=== PATIENT | female | born 1985 | race African-American/Black ===

== ENCOUNTER 2019-03-15 15:33 | Emergency (ER) | payer OTHER ==
[~2019-03-15] VITALS: Ht 152.4 cm; Wt 77.0 kg
[2019-03-15] MEDS ORDERED: ACETAMINOPHEN 325MG TABLET PO STA (15:58)
[2019-03-15] MEDS ORDERED: SODIUM CHLORIDE 0.9% 1,000 ML IV ONE ×2 (15:58→16:00)
[2019-03-15] MEDS ORDERED: ONDANSETRON HCL 4MG/2ML INJ IV STA (15:58)
[2019-03-15 16:25] LABS: HEMATOCRIT. 32.1 % (36.0-48.0); HEMOGLOBIN. 10.5 g/dL (12.0-16.0); MEAN CORPUSCULAR HEMOGLOBIN 26.3 pg (28.0-32.0); MEAN PLATELET VOLUME 9.3 fl (7.4-10.4); PLATELET 149 x1000/uL (130-400); RED BLOOD CELL COUNT 4.01 mill/uL (4.2-5.4); RED CELL DISTRIBUTION WIDTH 17.5 % (11.6-14.6)
[2019-03-15 16:29] LABS: CHLORIDE 103 mEq/L (98-107)
[2019-03-15 16:44] LABS: PLATELET ESTIMATE NORMAL
[2019-03-15 17:43] LABS: CLARITY URINE TURBID (CLEAR); COLOR URINE DARK YELLOW (YELLOW); KETONES URINE 2+ (NEGATIVE); LEUKOCYTE ESTERASE URINE 3+ (NEGATIVE); NITRITE URINE NEGATIVE (NEGATIVE); OCCULT BLOOD URINE 2+ (NEGATIVE); PH URINE 5.5 (4.5-8.0); PROTEIN URINE 3+ (NEGATIVE); SPECIFIC GRAVITY URINE 1.025 (1.005-1.030)
[2019-03-15] MEDS ORDERED: CEFTRIAXONE 1 G PREMIX 50 ML IV ONE (18:15)
[2019-03-15 18:54] VITALS: BP 130/70
== END 2019-03-15 19:14 | disposition home or self-care (01) ==
LOC: ER 15:33
DX: N39.0 Urinary tract infection, site not specified (principal); R42 Dizziness and giddiness
CPT/HCPCS: 36415; 71045; 80053; 81003; 85025; 87040; 87077; 87086; 87186; 93005; 96361; 96365; 96375; 99284; J0696; J2405; J7030

== ENCOUNTER 2022-04-21 09:46 | Inpatient (IN) | payer MEDICAID, OTHER ==
[~2022-04-21] VITALS: Ht 152.4 cm; Wt 77.1 kg
[2022-04-21] MEDS ORDERED: VISCOUS LIDOCAINE 2% 15 ML UDC PO STA (12:00)
[2022-04-21] MEDS ORDERED: ONDANSETRON 4MG ODT PO STA (12:00)
[2022-04-21] MEDS ORDERED: MAGNESIUM/ALUMINUM HYDROXIDE/SIMETHICONE 30ML UDC PO STA (12:00)
[2022-04-21] MEDS ORDERED: KETOROLAC 15MG/ML VIAL IM ONE (12:15)
[2022-04-21 12:26] LABS: BASOPHILS % 0.4 % (0.0-2.0); EOSINOPHILS % 1.2 % (0.0-5.0); HEMATOCRIT. 33.4 % (36.0-48.0); HEMOGLOBIN. 10.4 g/dL (12.0-16.0); LYMPHOCYTES % 27.8 % (20.0-50.0); MEAN CORPUSCULAR HEMOGLOBIN 22.6 pg (28.0-32.0); MEAN CORPUSCULAR VOLUME 72.4 fL (81.0-99.0); MEAN PLATELET VOLUME 8.6 fl (7.4-10.4); MONOCYTES % 4.9 % (2.0-8.0); NEUTROPHILS % 65.7 % (40.0-76.0); PLATELET 284 x1000/uL (130-400); RED BLOOD CELL COUNT 4.62 mill/uL (4.2-5.4); RED CELL DISTRIBUTION WIDTH 18.3 % (11.6-14.6)
[2022-04-21 12:30] LABS: CHLORIDE 106 mEq/L (98-107)
[2022-04-21 12:38] LABS: HCG SCREEN NEGATIVE
[2022-04-21] MEDS ORDERED: IOHEXOL-300 100 ML BOTTLE ONE (15:20)
[2022-04-21] MEDS ORDERED: MORPHINE SULFATE 4 MG/ML CPJ (NOT FOR IM USE) IV ONE (16:00)
[2022-04-21] MEDS ORDERED: ONDANSETRON HCL 4MG/2ML INJ IV ONE (16:00)
[2022-04-21] MEDS ORDERED: ONDANSETRON HCL 4MG/2ML INJ IV PRN (17:45)
[2022-04-21] MEDS ORDERED: NALOXONE HCL 0.4MG/ML VIAL IV PRN (18:00)
[2022-04-21] MEDS: AMLODIPINE 10MG TABLET PO SCH (18:39)
[2022-04-21] MEDS: TRAMADOL 50MG TABLET PO PRN (18:39)
[2022-04-21 18:50] VITALS: BP 160/80
[2022-04-21 20:00] VITALS: BP 149/82
[2022-04-22] VITALS: BP 145/86
[2022-04-22] MEDS: TRAMADOL 50MG TABLET PO PRN (02:12)
[2022-04-22 04:00] VITALS: BP 140/82
[2022-04-22] MEDS ORDERED: OMEPRAZOLE 20MG CAPSULE EXTENDED RELEASE PO SCH (07:20)
[2022-04-22 08:00] VITALS: BP 121/68
[2022-04-22] MEDS: AMLODIPINE 10MG TABLET PO SCH (09:40)
[2022-04-22 12:00] VITALS: BP 106/61
[2022-04-22 12:53] VITALS: BP 121/63
[2022-04-22 16:00] VITALS: BP 132/82
[2022-04-22] MEDS ORDERED: AMLO10TA80 MT (16:19)
== END 2022-04-22 18:59 | disposition home or self-care (01) ==
LOC: ER 11:08 → ENRESERV 16:23 → 6EST 17:08
PROVIDERS: ADMIT Internal Medicine; ATTEND Internal Medicine
DX: K80.10 Calculus of gallbladder with chronic cholecystitis without obstruction (principal); K85.90 Acute pancreatitis without necrosis or infection, unspecified; E44.0 Moderate protein-calorie malnutrition; D64.9 Anemia, unspecified; E66.9 Obesity, unspecified; I10 Essential (primary) hypertension; Z68.33 Body mass index [BMI] 33.0-33.9, adult
CPT/HCPCS: 36415; 74177; 76700; 80053; 84484; 84703; 85025; 93005; 99285; J1885; J2270; J2405; Q0162; Q9967

== ENCOUNTER 2022-10-15 17:15 | Emergency (ER) | payer MEDICAID ==
[~2022-10-15] VITALS: Ht 134.6 cm; Wt 77.0 kg
[~2022-10-15 17:15] MED LIST: AMLO10TA80 MT
[2022-10-15 17:39] VITALS: BP 175/89
[2022-10-15 18:14] LABS: BASOPHILS % 0.2 % (0.0-2.0); EOSINOPHILS % 1.2 % (0.0-5.0); HEMATOCRIT. 30.7 % (36.0-48.0); HEMOGLOBIN. 9.5 g/dL (12.0-16.0); LYMPHOCYTES % 25.1 % (20.0-50.0); MEAN CORPUSCULAR HEMOGLOBIN 21.3 pg (28.0-32.0); MEAN CORPUSCULAR VOLUME 68.5 fL (81.0-99.0); MEAN PLATELET VOLUME 8.4 fl (7.4-10.4); MONOCYTES % 5.5 % (2.0-8.0); PLATELET 269 x1000/uL (130-400); RED BLOOD CELL COUNT 4.47 mill/uL (4.2-5.4); RED CELL DISTRIBUTION WIDTH 20.4 % (11.6-14.6)
[2022-10-15 18:24] LABS: CHLORIDE 107 mEq/L (98-107)
[2022-10-15 18:30] LABS: HCG SCREEN NEGATIVE
[2022-10-15 18:55] LABS: PLATELET ESTIMATE NORMAL
[2022-10-16 00:59] LABS: CLARITY URINE CLEAR (CLEAR); COLOR URINE YELLOW (YELLOW); KETONES URINE 1+ (NEGATIVE); LEUKOCYTE ESTERASE URINE NEGATIVE (NEGATIVE); NITRITE URINE NEGATIVE (NEGATIVE); OCCULT BLOOD URINE NEGATIVE (NEGATIVE); PROTEIN URINE NEGATIVE (NEGATIVE); SPECIFIC GRAVITY URINE 1.007 (1.005-1.030); UROBILINOGEN URINE 0.2 E.U./dL (0.2-1.0)
[2022-10-16] MEDS ORDERED: HYDR-4001 MT (01:55)
[2022-10-16] MEDS ORDERED: IBUP-2029 MT (01:55)
[2022-10-16] MEDS ORDERED: PROT40 MT (01:55)
[2022-10-16] MEDS ORDERED: KETOROLAC 60MG/2ML VIAL IM ONE (02:00)
[2022-10-16] MEDS ORDERED: HYDROCODONE/ACETAMINOPHEN 10/325MG TABLET PO ONE (02:00)
== END 2022-10-16 02:30 | disposition home or self-care (01) ==
LOC: ER 17:15
DX: K80.20 Calculus of gallbladder without cholecystitis without obstruction (principal); I10 Essential (primary) hypertension
CPT/HCPCS: 36415; 76705; 80053; 81003; 81025; 83690; 84703; 85025; 96372; 99285; J1885; Z7610

== ENCOUNTER 2023-03-30 09:50 | Emergency (ER) | payer MEDICAID, OTHER ==
[~2023-03-30] VITALS: Ht 157.5 cm; Wt 77.1 kg
[~2023-03-30 09:50] MED LIST changes: +HYDR-4001 MT; +IBUP-2029 MT; +PROT40 MT
[2023-03-30 10:01] VITALS: O2SAT 98
[2023-03-30 10:15] VITALS: BP 142/83; PULSE 96; RESP 18; TEMP 98.4
[2023-03-30] MEDS ORDERED: IBUPROFEN 400MG TABLET PO ONE (10:15)
[2023-03-30] MEDS ORDERED: ACETAMINOPHEN 325MG TABLET PO ONE (10:15)
[2023-03-30 11:33] LABS: CLARITY URINE CLOUDY (CLEAR); COLOR URINE YELLOW (YELLOW); KETONES URINE TRACE (NEGATIVE); LEUKOCYTE ESTERASE URINE 1+ (NEGATIVE); NITRITE URINE NEGATIVE (NEGATIVE); OCCULT BLOOD URINE 3+ (NEGATIVE); PROTEIN URINE 2+ (NEGATIVE); SPECIFIC GRAVITY URINE 1.026 (1.005-1.030); UROBILINOGEN URINE 0.2 E.U./dL (0.2-1.0)
[2023-03-30] MEDS ORDERED: CEFTRIAXONE SODIUM 1 G/VIAL IM ONE (12:00)
[2023-03-30] MEDS ORDERED: LIDOCAINE HCL 1% 20ML VIAL (Pyxis) INJ INFIL ONE (12:00)
[2023-03-30] MEDS ORDERED: CEFP200T13 MT (12:01)
== END 2023-03-30 13:20 | disposition home or self-care (01) ==
LOC: ER 09:50
DX: N39.0 Urinary tract infection, site not specified (principal); Z79.899 Other long term (current) drug therapy; Z20.822 Contact with and (suspected) exposure to COVID-19
CPT/HCPCS: 99283; 87426; 81003; 81025; 87804 ×2; 96372; J0696; J3490; C9803

== ENCOUNTER 2023-05-16 16:30 | Emergency (ER) | payer OTHER ==
[~2023-05-16] VITALS: Ht 160 cm; Wt 77.0 kg
[~2023-05-16 16:30] MED LIST changes: +CEFP200T13 MT
[2023-05-16 16:50] VITALS: BP 132/84; PULSE 116; RESP 20; TEMP 99; O2SAT 97
[2023-05-16 20:50] LABS: BASOPHILS % 0.3 % (0.0-2.0); EOSINOPHILS % 0.1 % (0.0-5.0); HEMATOCRIT. 31.6 % (36.0-48.0); LYMPHOCYTES % 8.6 % (20.0-50.0); MEAN CORPUSCULAR HEMOGLOBIN 21.1 pg (28.0-32.0); MEAN CORPUSCULAR HGB CONC 31.7 g/dL (31.0-37.0); MEAN CORPUSCULAR VOLUME 66.6 fL (81.0-99.0); MEAN PLATELET VOLUME 8.6 fl (7.4-10.4); MONOCYTES % 4.1 % (2.0-8.0); NEUTROPHILS % 86.9 % (40.0-76.0); PLATELET 246 x1000/uL (130-400); RED BLOOD CELL COUNT 4.75 mill/uL (4.2-5.4); RED CELL DISTRIBUTION WIDTH 20.8 % (11.6-14.6); WHITE BLOOD COUNT 8.2 x1000/uL (4.5-11.0)
[2023-05-16 20:55] LABS: ADD RBC MORPHOLOGY YES; DIFFERENTIAL COMMENT 1
[2023-05-16 21:04] LABS: PROTHROMBIN TIME 10.6 sec (9.6-11.0)
[2023-05-16 21:16] LABS: CHLORIDE 104 mEq/L (98-107); INDEX HEMOLYSI 1 (1-3); INDEX ICTERIC 1 (1-4); INDEX LIPEMIC 1 (1-3); POTASSIUM 3.3 mEq/L (3.5-5.1); SODIUM 134 mEq/L (136-145)
[2023-05-16 21:17] LABS: HCG SCREEN NEGATIVE
[2023-05-16 21:29] LABS: ALANINE AMINOTRANSFERASE 25 IU/L (13-61); ALBUMIN 3.3 g/dL (3.4-5.0); ASPARTATE AMINOTRANSFERASE 19 IU/L (15-37); BILIRUBIN TOTAL 0.4 mg/dL (0.1-1.0); CALCIUM 9.6 mg/dL (8.5-10.1); CARBON DIOXIDE 24 mEq/L (21-32); CREATININE 0.6 mg/dL (0.6-1.3); GLUCOSE 116 mg/dL (70-105); PROTEIN TOTAL 8.9 g/dL (6.0-8.3); UREA NITROGEN BLOOD 11 mg/dL (7-21)
[2023-05-16 21:32] LABS: HYPOCHROMASIA 1+; MICROCYTOSIS 1+; PLATELET ESTIMATE NORMAL
[2023-05-16 22:04] LABS: CLARITY URINE CLOUDY (CLEAR); COLOR URINE YELLOW (YELLOW); GLUCOSE URINE NEGATIVE (NEGATIVE); KETONES URINE NEGATIVE (NEGATIVE); LEUKOCYTE ESTERASE URINE NEGATIVE (NEGATIVE); NITRITE URINE NEGATIVE (NEGATIVE); OCCULT BLOOD URINE TRACE (NEGATIVE); PH URINE 5.5 (4.5-8.0); PROTEIN URINE 2+ (NEGATIVE); SPECIFIC GRAVITY URINE 1.024 (1.005-1.030); UROBILINOGEN URINE 0.2 E.U./dL (0.2-1.0)
[2023-05-16 22:06] LABS: BACTERIA URINE 1+; RBC URINE 0-2 /hpf (0-2); SQUAMOUS EPITHELIAL CELL URINE 2+ /lpf (RARE/1+); YEAST URINE NONE SEEN
[2023-05-16] MEDS ORDERED: ONDA4TAB11 PO (22:21)
[2023-05-16] MEDS ORDERED: HYDR-4001 MT (22:21)
== END 2023-05-16 22:31 | disposition home or self-care (01) ==
LOC: ER 16:30
DX: K80.50 Calculus of bile duct without cholangitis or cholecystitis without obstruction (principal)
CPT/HCPCS: 36415; 76705; 80053; 81003; 84703; 85025; 99284

== ENCOUNTER 2023-06-11 20:14 | Emergency (ER) | payer MEDICAID, OTHER ==
[~2023-06-11] VITALS: Ht 157.5 cm; Wt 79.1 kg
[~2023-06-11 20:14] MED LIST changes: +ONDA4TAB11 PO
[2023-06-11 21:29] VITALS: BP 150/93; PULSE 67; RESP 16; TEMP 98.5; O2SAT 98
[2023-06-11 22:02] LABS: BASOPHILS % 0.5 % (0.0-2.0); EOSINOPHILS % 1.8 % (0.0-5.0); HEMATOCRIT. 29.6 % (36.0-48.0); HEMOGLOBIN. 9.1 g/dL (12.0-16.0); LYMPHOCYTES % 29.6 % (20.0-50.0); MEAN CORPUSCULAR HEMOGLOBIN 21.1 pg (28.0-32.0); MEAN CORPUSCULAR HGB CONC 30.8 g/dL (31.0-37.0); MEAN CORPUSCULAR VOLUME 68.4 fL (81.0-99.0); MEAN PLATELET VOLUME 8.7 fl (7.4-10.4); MONOCYTES % 7.3 % (2.0-8.0); NEUTROPHILS % 60.8 % (40.0-76.0); PLATELET 252 x1000/uL (130-400); RED BLOOD CELL COUNT 4.33 mill/uL (4.2-5.4)
[2023-06-11 22:04] LABS: ADD RBC MORPHOLOGY YES; DIFFERENTIAL COMMENT 1
[2023-06-11 22:13] LABS: CHLORIDE 108 mEq/L (98-107); INDEX HEMOLYSI 1 (1-3); INDEX ICTERIC 1 (1-4); INDEX LIPEMIC 1 (1-3); POTASSIUM 3.7 mEq/L (3.5-5.1); SODIUM 140 mEq/L (136-145)
[2023-06-11 22:21] LABS: ANISOCYTOSIS 2+; HYPOCHROMASIA 2+; MICROCYTOSIS 3+; PLATELET ESTIMATE NORMAL
[2023-06-11 22:24] LABS: ALANINE AMINOTRANSFERASE 23 IU/L (13-61); ALBUMIN 3.1 g/dL (3.4-5.0); ASPARTATE AMINOTRANSFERASE 16 IU/L (15-37); BILIRUBIN TOTAL 0.3 mg/dL (0.1-1.0); CALCIUM 8.8 mg/dL (8.5-10.1); CARBON DIOXIDE 23 mEq/L (21-32); CREATININE 0.7 mg/dL (0.6-1.3); GLUCOSE 117 mg/dL (70-105); PROTEIN TOTAL 8.1 g/dL (6.0-8.3); UREA NITROGEN BLOOD 11 mg/dL (7-21)
[2023-06-12 00:47] LABS: CLARITY URINE CLEAR (CLEAR); COLOR URINE YELLOW (YELLOW); GLUCOSE URINE NEGATIVE (NEGATIVE); KETONES URINE NEGATIVE (NEGATIVE); LEUKOCYTE ESTERASE URINE 2+ (NEGATIVE); NITRITE URINE NEGATIVE (NEGATIVE); OCCULT BLOOD URINE NEGATIVE (NEGATIVE); PROTEIN URINE NEGATIVE (NEGATIVE); SPECIFIC GRAVITY URINE 1.019 (1.005-1.030)
[2023-06-12 02:39] LABS: SQUAMOUS EPITHELIAL CELL URINE FEW /lpf (RARE/1+)
[2023-06-12 02:50] LABS: BACTERIA URINE NONE SEEN
== END 2023-06-12 01:54 | disposition home or self-care (01) ==
LOC: ER 20:14
DX: K80.50 Calculus of bile duct without cholangitis or cholecystitis without obstruction (principal); F17.200 Nicotine dependence, unspecified, uncomplicated; Z79.899 Other long term (current) drug therapy
CPT/HCPCS: 36415; 76705; 80053; 81003; 81025; 85025; 99284